=== PATIENT | male | born 1960 | race Caucasian/White ===

== ENCOUNTER → 2016-06-01 | Outpatient (CLI) | payer BC ==
--- NOTE | 2016-06-01 18:56 | CONS ---
DATE OF CONSULTATION: 06/01/2016 REASON FOR CONSULTATION: For sleep apnea. 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 He goes to bed at 9:00 p.m., wakes up at 3 a.m. in the morning. On weekends he is up until 2:00 a.m., wakes up at 7:00 a.m. He is, at times, tired and feels sleepy. He has never fallen asleep while driving back and forth and has never been involved in motor vehicle accident. He snores and his has noted apneas. He is morbidly obese. 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 He is obtaining his employment examination through [employer]. PAST MEDICAL HISTORY: 1. Obesity with interval 100 pound weight gain over the past few years. 2. Hypertension. 3. Hyperlipidemia. 4. Diabetes mellitus. PAST SURGICAL HISTORY: Appendectomy. ALLERGIES: None known. Outpatient medication list includes: 1. Metformin. 2. Lisinopril. 3. Zocor. SOCIAL HISTORY: Smokes 1 pack of cigarettes a day. No history of alcohol. No history of IV drugs. FAMILY HISTORY: Negative for sleep apnea. REVIEW OF SYSTEMS: Twelve-point review of systems was done. Positive findings were all mentioned above in the history of present illness. Note that the patient, in addition, has back stiffness, usually when he lays down for an extended period of time. No nocturnal heartburn or chest pain or shortness of breath. BP is 150/80, pulse 98, respirations 16, temperature 98.0. Saturation 95% on room air. Weight is 290. Height is 5 foot 6 inches. Neck size 18-3/4 of an inch. GENERAL APPEARANCE: Calm, comfortable. HEENT: Short neck. Crowding of the posterior pharynx. Mallampati class IV. There is no goiter or neck mass. LUNGS: Clear to auscultation. HEART: Sounds are regular rate and rhythm. Normal S1, S2. No S3, no S4. No murmurs. ABDOMEN: Soft, nontender. No organomegaly. EXTREMITIES: No edema. No cyanosis, or clubbing. IMPRESSION: 1. Sleep apnea suspected, currently under investigation. 2. Obesity with a body mass index of 46.8. 3. Significant crowding of the posterior pharynx with Mallampati of 4. The patient furthermore has a quite thick neck with neck circumference of 18-3/4 inch. 4. Diabetes mellitus. 5. Hypertension. 6. Hyperlipidemia. 7. Smoker. PLAN: 1. Encouraged weight loss. 2. Driving precautions were given to the patient and he was asked not to drive, especially when feeling drowsy or sleepy. 3. 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 4. Will review the home sleep study once results are available and we will proceed accordingly. 5. As mentioned, all records will be forwarded to [facility] regarding the possibility of him having obstructive sleep apnea. 6. We will continue to follow.
== END | disposition home or self-care (01) ==
LOC: SLEEP 13:23
PROVIDERS: ATTEND Internal Medicine Critical Care Medicine
DX: G47.33 Obstructive sleep apnea (adult) (pediatric) (principal); E66.01 Morbid (severe) obesity due to excess calories; I10 Essential (primary) hypertension; E78.5 Hyperlipidemia, unspecified; E11.9 Type 2 diabetes mellitus without complications; F17.200 Nicotine dependence, unspecified, uncomplicated; Z79.84 Long term (current) use of oral hypoglycemic drugs; Z68.42 Body mass index [BMI] 45.0-49.9, adult; Z79.899 Other long term (current) drug therapy
CPT/HCPCS: 99211

== ENCOUNTER → 2016-11-23 | Outpatient (CLI) | payer BC ==
--- NOTE | 2016-11-24 06:30 | PN ---
This patient has severe obstructive sleep apnea with an AHI of 61. This was confirmed by home sleep study. The patient was given an auto CPAP unit and today he is coming in for a compliancy followup. He is looking great. He is benefiting from the treatment. He is wearing his CPAP every night and he is trying to achieve more than 4 hours. It seems that his average CPAP use over the past 30 days is 4 hours and 43 minutes. His CPAP use for more than 4 hours is 63%. He is currently at auto CPAP therapy with a minimum pressure of 5, maximum pressure of 20 with 0 ( ). His leak factor is at 12 L. His AHI while on treatment is down to 0.3. Clinical he is benefiting significantly from his treatment. He is waking up much more alert and awake during the day and does not have any significant hypersomnia or sleepiness. He is quite excited and he wants to continue the treatment. His current vital signs are as follows: His temperature is 97.8, pulse is 88, respirations 16, saturation 94% on room air. Weight is 284. Height is 5 feet 6 inches. BMI is 45.6. BP is 144/78. GENERAL APPEARANCE: Calm, comfortable, obese. HEENT: Short neck, crowding of posterior pharynx. There is no goiter or neck masses. LUNGS: Diminished breath sounds bilaterally, otherwise, clear. HEART: Sounds regular rate and rhythm. Normal S1, S2. No S3, no S4, no murmurs. ABDOMEN: Soft, nontender. No organomegaly. EXTREMITIES: No edema. No cyanosis or clubbing. IMPRESSION: 1. Severe obstructive sleep apnea with an AHI of 61. Currently on auto CPAP with a minimum pressure of 5 and maximum pressure of 20 with excellent clinical response. 2. Morbid obesity. Body mass index 46.8. 3. Hypersomnia. Willard score is down to 4. 4. Diabetes. 5. Hypertension. 6. Hyperlipidemia. PLAN: 1. Encourage CPAP use and I will ask the patient to use the CPAP every night for more than 4 hours. 2. Clinical improving. 3. Encourage weight loss. 4. See me back in a year's time, earlier if needed. Treatment is successful for the time being. JER
== END ==
LOC: SLEEP 16:15
PROVIDERS: ATTEND Internal Medicine Critical Care Medicine
DX: G47.33 Obstructive sleep apnea (adult) (pediatric) (principal); G47.10 Hypersomnia, unspecified; E66.01 Morbid (severe) obesity due to excess calories; E11.9 Type 2 diabetes mellitus without complications; I10 Essential (primary) hypertension; E78.5 Hyperlipidemia, unspecified; Z68.42 Body mass index [BMI] 45.0-49.9, adult

== ENCOUNTER → 2018-05-04 | Outpatient (CLI) | payer BC ==
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
== END | disposition home or self-care (01) ==
LOC: RADXRMAIN 13:36
PROVIDERS: ATTEND Physical Medicine & Rehabilitation
DX: M76.892 Other specified enthesopathies of left lower limb, excluding foot (principal); M43.16 Spondylolisthesis, lumbar region; M46.96 Unspecified inflammatory spondylopathy, lumbar region; Z98.890 Other specified postprocedural states
CPT/HCPCS: 72114; 73502

== ENCOUNTER → 2018-05-10 | Outpatient (CLI) | payer OTHER ==
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
== END | disposition home or self-care (01) ==
LOC: RADMRIMAIN 13:02
PROVIDERS: ATTEND Orthopaedic Surgery
DX: S83.242A Other tear of medial meniscus, current injury, left knee, initial encounter (principal); S83.282A Other tear of lateral meniscus, current injury, left knee, initial encounter; M22.42 Chondromalacia patellae, left knee; M17.12 Unilateral primary osteoarthritis, left knee; G89.29 Other chronic pain